=== PATIENT | female | born 1985 | race Caucasian/White ===

== ENCOUNTER 2023-06-14 09:22 | Outpatient (CLI) | payer BC, SELFPAY | END 2023-06-14 09:23 | disposition home or self-care (01) | LOC: NFLDREF 06-15 06:28 | PROVIDERS: PCP Family Medicine; Referring Provider Family Medicine; Visit Provider Physician Assistant Medical | DX: N30.00 Acute cystitis without hematuria (principal) | CPT/HCPCS: 87086 ==